=== PATIENT | male | born 1950 | race Two or more races ===

== ENCOUNTER 2018-10-17 07:11 | Emergency (ER) | payer OTHER ==
[~2018-10-17] VITALS: Ht 177.8 cm; Wt 117.9 kg
[2018-10-17] MEDS ORDERED: COZAAR100 MG (07:28)
[2018-10-17] MEDS ORDERED: HYDRALAZINE HC100 MG (07:28)
[2018-10-17] MEDS ORDERED: TIROSINT25 MCG (07:29)
== END 2018-10-17 12:18 | disposition home or self-care (01) ==
LOC: ER 07:11
DX: N39.0 Urinary tract infection, site not specified (principal); R31.0 Gross hematuria

== ENCOUNTER 2019-12-12 06:26 | Outpatient (CLI) | payer OTHER ==
[~2019-12-12 06:26] MED LIST: COZAAR100 MG; HYDRALAZINE HC100 MG; TIROSINT25 MCG
== END 2019-12-12 06:44 | disposition home or self-care (01) ==
LOC: LAB 06:26
DX: D64.89 Other specified anemias (principal); E88.89 Other specified metabolic disorders; D68.8 Other specified coagulation defects; N39.0 Urinary tract infection, site not specified; Z22.322 Carrier or suspected carrier of Methicillin resistant Staphylococcus aureus; E55.9 Vitamin D deficiency, unspecified; I10 Essential (primary) hypertension; Z76.89 Persons encountering health services in other specified circumstances; M54.2 Cervicalgia; M79.671 Pain in right foot

== ENCOUNTER 2020-01-02 05:30 | Day surgery (SDC) | payer OTHER ==
[~2020-01-02] VITALS: Ht 175.3 cm; Wt 122.5 kg
[~2020-01-02 05:30] MED LIST changes: +CHORTHALIDONE PO; +DITROPAN XL10 MG PO; +HYDRALAZINE HC100 MG PO; +MELOXICAM15 MG PO; +TAMS0.4C PO
== END 2020-01-02 14:30 | disposition home or self-care (01) ==
LOC: CIR.AMB 05:30
DX: M75.111 Incomplete rotator cuff tear or rupture of right shoulder, not specified as traumatic (principal); M75.41 Impingement syndrome of right shoulder; M65.811 Other synovitis and tenosynovitis, right shoulder; M19.011 Primary osteoarthritis, right shoulder

== ENCOUNTER 2020-08-08 09:13 | Outpatient (CLI) | payer OTHER | END 2020-08-08 09:17 | disposition home or self-care (01) | LOC: RAD 09:13 | PROVIDERS: ATTEND Orthopaedic Surgery | DX: M77.31 Calcaneal spur, right foot (principal); M25.571 Pain in right ankle and joints of right foot ==

== ENCOUNTER 2021-03-26 09:59 | Outpatient (CLI) | payer OTHER | END 2021-03-26 10:06 | disposition home or self-care (01) | LOC: LAB 09:59 → RAD 09:59 → LAB 10:06 | PROVIDERS: ATTEND Urology | DX: I11.0 Hypertensive heart disease with heart failure (principal) ==

== ENCOUNTER 2021-04-01 11:45 | Inpatient (IN) | payer OTHER ==
[~2021-04-01] VITALS: Ht 274.3 cm; Wt 5.0 kg
[2021-04-01] MEDS ORDERED: [UNRECOGNIZED DRUG - OTHER] PO (14:27)
[2021-04-03] MEDS ORDERED: CHLORTHALIDONE25 MG (11:47)
[2021-04-03] MEDS ORDERED: FINASTERIDE5 MG (11:47)
== END 2021-04-05 08:27 | disposition home or self-care (01) | DRG 714 ==
LOC: O/R 04-03 09:25 → SURG 04-03 09:25 → SURH 04-03 11:45 → SURG 04-03 20:08
PROVIDERS: ADMIT Urology; ATTEND Urology
PROC: 0VT08ZZ Resection of Prostate, Via Natural or Artificial Opening Endoscopic (ICD-10-PCS; principal; 2021-04-03 13:00)
DX: N40.0 Benign prostatic hyperplasia without lower urinary tract symptoms (principal); Z20.822 Contact with and (suspected) exposure to COVID-19

== ENCOUNTER 2022-06-21 08:44 | Outpatient (CLI) | payer OTHER ==
[~2022-06-21 08:44] MED LIST changes: +CHLORTHALIDONE25 MG; +FINASTERIDE5 MG; +[UNRECOGNIZED DRUG - OTHER] PO
== END 2022-06-21 08:51 | disposition home or self-care (01) ==
LOC: RAD 08:44
PROVIDERS: ATTEND Family Medicine
DX: I11.9 Hypertensive heart disease without heart failure (principal)

== ENCOUNTER 2022-08-20 15:01 | Outpatient (CLI) | payer OTHER | END 2022-08-20 15:04 | disposition home or self-care (01) | LOC: RAD 15:01 | PROVIDERS: ATTEND Orthopaedic Surgery | DX: M79.651 Pain in right thigh (principal) ==